=== PATIENT | female | born 1940 | race Caucasian/White ===

== ENCOUNTER → 2017-05-24 | Outpatient (CLI) | payer BC | LOC: COL.RAD 11:46 | DX: G93.9 Disorder of brain, unspecified (principal) | CPT/HCPCS: A9585 ==

== ENCOUNTER 2017-05-29 06:48 | Day surgery (SDC) | payer BC ==
[~2017-05-29] VITALS: Ht 154.9 cm; Wt 42.5 kg
[2017-05-29] VITALS (7 sets, daily range): BP systolic 131–172; BP diastolic 83–98; PULSE 73–107; TEMP 97.3
[2017-05-29] MEDS ORDERED: COZAAR 25MG25 MG/TAB PO (07:37)
[2017-05-29] MEDS ORDERED: XANAX .25M0.25 MG/TA PO (07:37)
[2017-05-29] MEDS ORDERED: 00186-0372-20 IH (07:38)
[2017-05-29] MEDS ORDERED: PROAIR HFA0.09 MG/AC IH (08:13)
[2017-05-29] MEDS ORDERED: NORCO 325 MG-51 TAB PO ×2 (11:28→11:32)
[2017-05-29] MEDS ORDERED: COLACE 100100 MG/CAP PO ×2 (11:28→11:32)
== END 2017-05-29 12:02 | disposition home or self-care (01) ==
LOC: SDCO 06:48
DX: C34.92 Malignant neoplasm of unspecified part of left bronchus or lung (principal); I10 Essential (primary) hypertension; Z87.891 Personal history of nicotine dependence
CPT/HCPCS: C1788; J0690; J1644; J2704; J7120

== ENCOUNTER 2017-09-26 14:46 | Observation (INO) | payer BC ==
[~2017-09-26] VITALS: Ht 154.9 cm; Wt 50.3 kg
[~2017-09-26 14:46] MED LIST: 00186-0372-20 IH; COLACE 100100 MG/CAP PO; COZAAR 25MG25 MG/TAB PO; NORCO 325 MG-51 TAB PO; PROAIR HFA0.09 MG/AC IH; XANAX .25M0.25 MG/TA PO
[2017-09-26 15:25] LABS: HEMOGLOBIN 12.7 g/dl (12.5-16.0); MEAN CELL VOLUME 90 fl (80.0-100.0); MEAN CORPUSCULAR HEMOGLOBIN 31 pg (27.0-31.0); MEAN CORPUSCULAR HGB CONC 35 g/dl (33.0-37.0); MEAN PLATELET VOLUME 10.4 fl (7.4-10.4); PLATELET COUNT 323 K/mm3 (130-400); RED BLOOD COUNT 4.04 M/mm3 (4.10-5.30); REDCELL DISTRIBUTION WIDTH-CV 14.5 % (11.5-14.5)
[2017-09-26 15:32] LABS: HEMATOCRIT 36.5 % (37.0-47.0)
[2017-09-26 15:49] LABS: BAND 13 % (0-10); LYMPHOCYTE 3 % (20.0-51.0); NEUTROPHILS 83 % (42.0-75.2)
[2017-09-26 15:50] LABS: PLATELET ESTIMATE NORMAL (NORMAL)
[2017-09-26 15:57] LABS: BLOOD UREA NITROGEN 16 mg/dL (7-17); CREATININE, serum 0.49 mg/dL (0.52-1.25); GLUCOSE 158 mg/dL (74-106); SODIUM 131 mmol/L (137-145)
[2017-09-26 15:58] LABS: ANION GAP 12 mmol/L (7-16); CARBON DIOXIDE 23 mmol/L (22-30); CHLORIDE 96 mmol/L (98-107); MAGNESIUM 1.9 mg/dL (1.6-2.3); POTASSIUM 3.9 mmol/L (3.4-5.0)
[2017-09-26 15:59] LABS: ALANINE AMINOTRANSFERASE 44 U/L (9-52); ALBUMIN 3.6 gm/dL (3.5-5.0); ALKALINE PHOSPHATASE 121 U/L (50-136); AST,SGOT 30 U/L (15-37); BILIRUBIN,TOTAL < 0.1 mg/dL (0.0-1.0); CREATINE KINASE 49 U/L (30-135); TOTAL PROTEIN 7.2 gm/dL (6.4-8.2)
[2017-09-26 16:00] LABS: PROLACTIN 89.2 ng/mL (3.0-18.6)
[2017-09-26 16:14] LABS: COLLECTION METHOD CLEAN CATCH
[2017-09-26 16:21] LABS: MUCOUS Present /lpf; PH 5 (5-8); URINE APPEARANCE Clear; URINE BACTERIA None Seen /hpf; URINE BILIRUBIN Negative (NEGATIVE); URINE BLOOD 2+ (NEGATIVE); URINE COLOR Yellow; URINE GLUCOSE Negative (NEGATIVE); URINE KETONE Trace (NEGATIVE); URINE LEUKOCYTE ESTERASE Negative (NEGATIVE); URINE NITRATE Negative (NEGATIVE); URINE PROTEIN(semi-quant) Negative (NEGATIVE); URINE UROBILINOGEN Negative (NEGATIVE)
[2017-09-26] MEDS ORDERED: COLACE 100100 MG/CAP PO (17:58)
[2017-09-26 18:42] VITALS: BP 177/91; PULSE 102; TEMP 97.9
[2017-09-26 19:40] VITALS: BP 141/84; PULSE 93; TEMP 97.9
[2017-09-26 23:50] VITALS: BP 108/61; PULSE 76; TEMP 97.7
[2017-09-27 03:33] VITALS: BP 109/57; PULSE 85; TEMP 97.5
[2017-09-27 06:48] LABS: BASO % 0.1 % (0.0-2.0); GRAN # 8.7 (1.4-6.5); GRAN % 84.8 % (42.2-75.2); LYMPH # 0.9 (1.2-3.4); LYMPH % 8.4 % (20.0-51.0); MEAN CELL VOLUME 92 fl (80.0-100.0); MEAN CORPUSCULAR HEMOGLOBIN 31 pg (27.0-31.0); MEAN CORPUSCULAR HGB CONC 34 g/dl (33.0-37.0); MEAN PLATELET VOLUME 10.9 fl (7.4-10.4); MONO # 0.6 (0.1-0.6); MONO % 5.8 % (1.7-9.3); PLATELET COUNT 330 K/mm3 (130-400); RED BLOOD COUNT 3.89 M/mm3 (4.10-5.30); REDCELL DISTRIBUTION WIDTH-CV 14.7 % (11.5-14.5)
[2017-09-27 06:52] LABS: HEMATOCRIT 35.8 % (37.0-47.0)
[2017-09-27 06:57] LABS: CREATININE, serum 0.66 mg/dL (0.52-1.25); POTASSIUM 4.4 mmol/L (3.4-5.0)
[2017-09-27 07:43] VITALS: BP 112/60; PULSE 71; TEMP 98.4
[2017-09-27 11:40] VITALS: BP 111/85; PULSE 75; TEMP 98
[2017-09-27] MEDS ORDERED: KEPPRA 500MG500 MG PO (13:08)
== END 2017-09-27 15:30 | disposition home or self-care (01) ==
LOC: COL.ER 14:46 → MEDICAL 16:10
PROVIDERS: Emergency Medicine; Physician Assistant
DX: R56.9 Unspecified convulsions (principal); C34.90 Malignant neoplasm of unspecified part of unspecified bronchus or lung; D72.829 Elevated white blood cell count, unspecified; E87.1 Hypo-osmolality and hyponatremia; I10 Essential (primary) hypertension; F41.9 Anxiety disorder, unspecified; Z87.891 Personal history of nicotine dependence; Z83.3 Family history of diabetes mellitus
CPT/HCPCS: A9585; G0378; G8978-GP; G8979-GP; J0692; J1650; J1953; J7030